=== PATIENT | male | born 1950 | race Caucasian/White ===

== ENCOUNTER 2016-12-03 09:57 | Observation (INO) | payer OTHER ==
[~2016-12-03] VITALS: Ht 185.4 cm; Wt 118.0 kg
[~2016-12-03 09:57] MED LIST: ASPI325T PO; BUPIVACAINE HCL PF 0.5% 30 ML VIAL ONE; CARV12.52; ENAL5TAB; GABA800T; GELFOAM SIZE 100 ONE; GENTAMICIN SULFATE 80 MG/2 ML VIAL ONE; LOVA10TA; MONT10TA4; MORP1TAB25; THROMBIN (TOPICAL) 5,000 UNIT VIAL ONE; ceFAZolin 2 GM PREMIX 50 ML ONE; methylPREDNISolone ACETATE 40 MG/ML VIAL ONE
[2016-12-03] MEDS ORDERED: INSULIN HUMAN REGULAR 1,000 UNITS/10 ML VIAL SQ PRN (10:45)
[2016-12-03] MEDS ORDERED: SODIUM CHLORID 0.9% 500 ML IV PRN (10:45)
[2016-12-03] MEDS ORDERED: CHLORHEXIDINE GLUCONATE 2 % 1 PACK (2 CLOTHS) TOPICAL PRN (10:45)
[2016-12-03] MEDS ORDERED: POVIDONE IODINE 5% (ANTISEPSIS KIT) 4 APPLICATIONS EACH NARE PRN (10:45)
[2016-12-03] MEDS ORDERED: LACTATED RINGER'S 1000 ML IV PRN (10:45)
[2016-12-03] MEDS ORDERED: METOPROLOL TARTRATE 25 MG TAB PO PRN (10:45)
[2016-12-03] MEDS ORDERED: SODIUM CHLOR 0.9% 1000 ML INJ 1,000 ML IV SCH (11:00)
[2016-12-03] MEDS ORDERED: LACTATED RINGER'S 1000 ML INJ 1,000 ML IV ONE (12:00)
[2016-12-03] MEDS ORDERED: ONDANSETRON HCL 4 MG/2 ML VIAL IV PUSH ONE (12:00)
[2016-12-03] MEDS ORDERED: DEXAMETHASONE SOD PHOS 4 MG/ML VIAL IV ONE (12:00)
[2016-12-03] MEDS ORDERED: LIDOCAINE HCL 1% PF 5 ML AMPULE OTHER ONE (12:00)
[2016-12-03] MEDS ORDERED: PROPOFOL 200 MG/20 ML AMP IV ONE (12:00)
[2016-12-03] MEDS ORDERED: ROCURONIUM INJ 50 MG/5 ML SYRINGE IV PUSH ONE (12:00)
[2016-12-03] MEDS ORDERED: PHENYLEPH/NS 1000 MCG/10 ML SYR IV ONE (12:00)
[2016-12-03] MEDS ORDERED: MIDAZOLAM HCL 2 MG/2 ML VIAL IV ONE (12:00)
[2016-12-03] MEDS ORDERED: ePHEDrine/NS 25 MG/5 ML SYR IV ONE (12:00)
[2016-12-03] MEDS: VANCOMYCIN HCL 1000 MG ON-CALL/NS 250 ML IV SCH ×4 (12:29→17:41)
[2016-12-03] MEDS ORDERED: FAMOTIDINE 20 MG/2 ML VIAL ONE (12:50)
[2016-12-03] MEDS ORDERED: HYDROmorphone HCL PF 2 MG/ML VIAL ONE ×2 (12:50→13:52)
[2016-12-03] MEDS ORDERED: ACETAMINOPHEN 1000 MG/100 ML 100 ML IV ONE (13:52)
[2016-12-03] MEDS ORDERED: ARTIFICIAL TEARS OPTH OINT 3.5 APPLIC/3.5 GM TUBO ONE (13:52)
[2016-12-03] MEDS ORDERED: VANCOMYCIN HCL 1000 MG VIAL ONE (15:05)
[2016-12-03] MEDS ORDERED: DO NOT ADM ANY ANTICOAGULANT DRUGS PRN (17:00)
[2016-12-03] MEDS ORDERED: HYDR-3583 PO (17:09)
[2016-12-03] MEDS ORDERED: MORPHINE SULFATE 4 MG/ML INJ IV PUSH PRN (17:15)
[2016-12-03] MEDS ORDERED: ACETAMINOPHEN/HYDROcodone 325 MG/10 MG TAB PO PRN (17:15)
[2016-12-03] MEDS ORDERED: ACETAMINOPHEN 325 MG TAB PO PRN (17:15)
--- NOTE | 2016-12-03 17:16 | RADRPT ---
EXAM DATE/TIME: 12/03/2016 14:55 [place] COMPARISON: No previous studies available for comparison. INDICATIONS : Level localiztion for lumbar fusion, L4-5, L5-S1. MEDICAL HISTORY : Unobtainable. SURGICAL HISTORY : Unobtainable. ENCOUNTER: Initial ACUITY: 1 day PAIN SCORE: Non-responsive. LOCATION: Lumbar. FINDINGS: Probe is directed at L5-S1. CONCLUSION: 12 L5-S1. Dilshad Sales MD FACR on December 03, 2016 at 17:15 Board Certified Radiologist. This report was verified electronically.
[2016-12-03] MEDS ORDERED: *MEPERIDINE 25 MG INJ VIAL PERIprocedural Use ONLY ONE (17:17)
[2016-12-03] MEDS ORDERED: SODIUM CHLORIDE 0.9% FLUSH 10 ML FLUSH IV FLUSH PRN (17:30)
[2016-12-03] MEDS: NS + KCL 20 MEQ INJ 1,000 ML IV SCH (17:35)
[2016-12-03] MEDS ORDERED: *morphine SULFATE 8 MG/ML PERIprocedure ONLY ONE (17:37)
[2016-12-03] MEDS: ceFAZolin 2 GM PREMIX 50 ML IV SCH (18:40)
[2016-12-03] MEDS: GABAPENTIN 400 MG CAP PO SCH (18:50)
[2016-12-03] MEDS: PRAVASTATIN SOD 10 MG TAB PO SCH (18:50)
[2016-12-03] MEDS: ENALAPRIL MALEATE 5 MG TAB PO SCH (18:50)
[2016-12-03] MEDS: CARVEDILOL 12.5 MG TAB PO SCH (20:50)
[2016-12-03] MEDS: MORPHINE SULFATE 30 MG CONTROLLED RELEASE TAB PO SCH (20:50)
[2016-12-03] MEDS: MONTELUKAST SODIUM 10 MG TAB PO SCH (20:50)
[2016-12-03] MEDS: DOCUSATE SODIUM 100 MG CAP PO SCH (20:50)
[2016-12-03] MEDS: SODIUM CHLORIDE 0.9% FLUSH 10 ML FLUSH IV FLUSH SCH (21:00)
[2016-12-03 21:10] VITALS: BP 147/74; PULSE 60; RESP 18; TEMP 97.7; O2SAT 96
[2016-12-03] MEDS: MORPHINE SULFATE 4 MG/ML INJ IV PUSH PRN (21:33)
[2016-12-04] VITALS (7 sets, daily range): BP systolic 108–144; BP diastolic 59–69; PULSE 68–79; RESP 16–18; TEMP 97.8–98.5; O2SAT 96–100
[2016-12-04] MEDS: MORPHINE SULFATE 4 MG/ML INJ IV PUSH PRN ×8 (00:34→20:16)
[2016-12-04] MEDS: ceFAZolin 2 GM PREMIX 50 ML IV SCH ×2 (02:35→09:09)
[2016-12-04] MEDS: NS + KCL 20 MEQ INJ 1,000 ML IV SCH ×3 (03:19→23:43)
[2016-12-04] MEDS: PRAVASTATIN SOD 10 MG TAB PO SCH (07:53)
[2016-12-04] MEDS: ENALAPRIL MALEATE 5 MG TAB PO SCH (07:53)
[2016-12-04] MEDS: MORPHINE SULFATE 30 MG CONTROLLED RELEASE TAB PO SCH ×2 (07:53→21:30)
[2016-12-04] MEDS: PANTOPRAZOLE SOD 40 MG DELAYED RELEASE TAB PO SCH (07:53)
[2016-12-04] MEDS: DOCUSATE SODIUM 100 MG CAP PO SCH ×2 (07:53→20:20)
[2016-12-04] MEDS: GABAPENTIN 400 MG CAP PO SCH ×3 (07:53→17:11)
[2016-12-04] MEDS: CARVEDILOL 12.5 MG TAB PO SCH ×2 (07:53→20:21)
[2016-12-04] MEDS: SODIUM CHLORIDE 0.9% FLUSH 10 ML FLUSH IV FLUSH SCH ×2 (07:54→20:26)
--- NOTE | 2016-12-04 10:43 | HHI.DCPOC ---
Discharge Care Plan Diagnosis: (1) S/P lumbar laminectomy Goals to Promote Your Health * To prevent worsening of your condition and complications * To maintain your health at the optimal level Directions to Meet Your Goals Take your medications as prescribed Follow your dietary instruction Follow activity as directed Keep your appointments as scheduled Take your immunizations and boosters as scheduled If your symptoms worsen call your PCP, if no PCP go to Urgent Care Center or Emergency Room Smoking is Dangerous to Your Health. Avoid second hand smoke Call the 24-hour hour crisis hotline for domestic abuse at [facility] Dec 04, 2016 10:43
--- NOTE | 2016-12-04 10:43 | HHI.DS ---
Discharge Summary Admission Date Dec 03, 2016 at 17:04 Discharge Date: Dec 05, 2016 Admitting Diagnosis s/p lumbar laminectomy, microdiscectomy (1) S/P lumbar laminectomy ICD Code: Z98.890 - Other specified postprocedural states Brief History Mr Walls is a 66 year-old male who presented with intractable back pain and gianna evidence of left L5 and S1 lower extremity radiculopathy. The patient has failed maximum nonsurgical management including multiple modalities of conservative treatment as well as pain management interventions by an interventional pain specialist. A surgical decompression was indicated as a last resort. Imaging Last Impressions Lumbar Spine X-Ray 12/03/16 0000 Signed Impressions: Service Date/Time: Saturday, December 03, 2016 14:55 - CONCLUSION: 12 L5- S1. Dilshad Sales MD [facility] Course Mr. Arreola underwent L4 5, L5-S1 decompressive laminectomy, mesial facetectomy, foraminotomy with microsurgical resection of the disc on Dec 03, 2016 for lumbar spinal stenosis. His surgery went well without complications and the patient was cleared for discharge home by Dr. Kvein the following day. Unfortunately he did not go home yesterday due to persistent left buttock pain. Mr. Arreola was seen again this am with Dr. Kevin, pt c/o difficulty laying on his left side and bearing weight on his left leg due to pain in the left buttocks. He also c/o numbness in the left lateral foot/toes. He denies focal weakness, urine retention, bowel incontinence. Pt reports he is not ready to go home. denies chest pain, difficulty breathing, shortness of breath. He was given Toradol injection and started on muscle relaxants and discharged to SNF. Wound care and activity restrictions were discussed to both the patient and his . Pt Condition on Discharge: Stable Discharge Disposition: Discharge to SNF Discharge Instructions DIET: Follow Instructions for: Heart Healthy Diet ACTIVITIES You can perform: Weight Bearing As Maritza ADDITIONAL Activity Instructio: Avoid strenuous activities, heavy lifting, overhead activities, repetitive bending, twisting, pushing, pulling or any activities which might result in stress over the spine. Avoid situation that will put at risk for falls. Use assistive device as needed for walking. Wear cervical collar at all times, may remove only with meals. Wear lumbar brace when out of bed. New Medications: Carisoprodol (Soma) 350 Mg Tab 350 MG PO TID PRN for PAIN, #90 TAB 0 Refills Hydrocodone-Acetaminophen (Hydrocodone-Acetaminophen) 10-325 mg Tab 1 TAB PO Q8HR PRN for PAIN SCALE 1 TO 10, #90 TAB Continued Medications: Aspirin (Aspirin) 325 Mg Tab 325 MG PO DAILY, #30 TAB 0 Refills Carvedilol (Carvedilol) 12.5 Mg Tab for 90 Days Enalapril (Enalapril) 5 Mg Tab for 90 Days Gabapentin (Gabapentin) 800 Mg Tab for 30 Days Lovastatin (Lovastatin) 10 Mg Tab for 90 Days Montelukast (Montelukast) 10 Mg Tab for 90 Days Morphine ER (Morphine ER) 30 Mg Tab for 30 Days [facility] Dec 04, 2016 10:43
--- NOTE | 2016-12-04 11:01 | PD.OP ---
Operative Report Date of Surgery: Dec 03, 2016 Preoperative Diagnosis: Lumbar spinal stenosis Postoperative Diagnosis: Lumbar spinal stenosis Procedure: L4 5, L5-S1 decompressive laminectomy, mesial facetectomy, foraminotomy with microsurgical resection of the disc Anesthesia: general Surgeon: Vick Kevin Ground Wood Supervisor(s): Lexis Navarrete Operation and Findings: INDICATIONS FOR THE SURGICAL PROCEDURE Mr alfonso is a 66 year-old male who presented with intractable back pain and gianna evidence of left L5 and S1 lower extremity radiculopathy. The patient has failed maximum nonsurgical management including multiple modalities of conservative treatment as well as pain management interventions by an interventional pain specialist. A surgical decompression was indicated as a last resort. The [id number] details of the procedure, indications, alternatives, risks and potential complications were fully discussed with the patient. The patient fully understood. All the questions were answered. No guarantees were given. The patient voiced requesting the procedure and provided informed consents. The patient was offered the alternative of delaying the procedure and continuing with nonsurgical management. DETAILS OF THE SURGICAL PROCEDURE After the induction of general anesthesia, endotracheal intubation was performed. A Bah catheter, bilateral MICHELLE hose and sequential compression devices were placed and kept throughout the procedure. The patient was positioned prone on a Enrique table over a Sony frame. All pressure points were carefully padded with eggcrate mattress. The eyes were tapped shut after ointment was applied by the anesthesiologist to prevent corneal abrasion. A Mora hugger was placed over the exposed lower body to maintain control of the core body temperature. The lower lumbar region was prepped and draped in the usual sterile fashion. A spinal needle was placed on the paraspinal muscle and a cross-table lateral x-ray performed with a C-arm. The skin incision was made over the spinous process of L4 and S1 along the midline. Small subcutaneous bleeders were controlled with a bipolar. The subcutaneous tissue and thoracolumbar fascia was opened with the Bovie and the spinous process of L4, L5 and S1 were exposed. Then, using a Philip elevator and a Bovie a subperiosteal dissection was performed over the spinous process lamina and facet at L4-L5, and L5-S1 on the left side. A microdiscectomy self- retaining retractor was placed and an instrument was placed underneath the lamina of L5, and another cross-table lateral x-ray performed for radiological confirmation of the level. At this point in the procedure the operating microscope was draped in the usual sterile fashion and brought to the field. The rest of the surgical procedure was performed using microsurgical dissection technique with exception of the closure. Once the level was confirmed, a TPS drill brought to the field and a left hemilaminectomy was performed at L4-L5, and L5-S1 in standard fashion using the AM-8 drill bit, exposing the ligamentum flavum. The superior free border of the ligamentum flavum was from the dura with a ligament dissector and the ligamentum flavum was carefully removed with a 3 mm thin footplate Kerrison. The ligament Flavum and facets were significantly hypertrophic resulting on mass effect on the dural sac. Then, the medial aspect of the facet was drilled and undermined and the exiting L5 nerve root was identified and followed towards the foramen. A foraminotomy was performed with a 3 mm Kerrison. Then, the TPS drill was used to undermine the base of the spinous process, in order to carry out the decompression across the midline to the contralateral side. The ligamentum flavum across the midline was dissected from the dura with a ligament dissector and carefully removed with a 3 mm thin footplate Kerrison. An appropriate decompression of the dural sac and nerve root was achieved. Epidural veins located laterally to the dural sac were carefully coagulated with a bipolar and incised with microscissors. Gentle medial retraction of the dural sac allowed inspection of the disc space. The patient had a broad-based disc protusion which combined with the hypertrophic facets and ligamentun flavum was producing significant stenosis with mass effect on the dural sac and nerve root. Microdiscectomy was then deemed necessary. The annulus fibrosus was thoroughly coagulated with the bipolar and incised with a #10 blade. Then, a microdiscectomy was carried out in the standard fashion using straight and up-biting pituitary forceps. A reverse angle curet was used to push the extruded disc fragments into the disc space so they could be removed with pituitary forceps. Special attention was placed on the middle nerve root and axilla of the nerve root where disc fragments were found, which were carefully dissected and pushed into the disc space and removed with the Kerrison. A good decompression was achieved. The disc space was then irrigated with antibiotic solution. The incision was then thoroughly irrigated with antibiotic solution and hemostasis secured with the bipolar. A Valsalva maneuver failed to show any cerebrospinal fluid leak or bleeding. The incision was irrigated and closed in layers. 0 Vicryl with interrupted sutures was used to close the thoracolumbar fascia and superficial fascia. The subcutaneous tissue was closed with 3-0 Vicryl. The skin was closed with 4-0 running subcuticular Vicryl. Dermabond was applied to the skin. At the end of the procedure, the sponge, needle and instrument counts were all correct. Estimated blood loss was less than 150-200 cc. No blood transfusion was given. No intraoperative complications occurred. The patient received prophylactic antibiotics. The patient was then extubated and transferred to the recovery room in stable condition. Vick Kevin MD Dec 04, 2016 11:01
[2016-12-04] MEDS: MONTELUKAST SODIUM 10 MG TAB PO SCH (20:21)
[2016-12-04] MEDS ORDERED: TEMAZEPAM 15 MG CAP PO ONE (23:30)
[2016-12-04] MEDS: ACETAMINOPHEN/HYDROcodone 325 MG/10 MG TAB PO PRN (23:42)
[2016-12-05] VITALS: BP 140/60; PULSE 75; RESP 17; TEMP 98.1; O2SAT 99
[2016-12-05 02:45] VITALS: O2SAT 98
[2016-12-05] MEDS: ACETAMINOPHEN/HYDROcodone 325 MG/10 MG TAB PO PRN ×3 (03:05→13:40)
[2016-12-05 04:40] VITALS: BP 120/56; PULSE 78; RESP 17; TEMP 98.5; O2SAT 94
[2016-12-05 08:00] VITALS: BP 124/62; PULSE 75; RESP 18; TEMP 97.8; O2SAT 96
[2016-12-05] MEDS: PRAVASTATIN SOD 10 MG TAB PO SCH (08:37)
[2016-12-05] MEDS: MORPHINE SULFATE 30 MG CONTROLLED RELEASE TAB PO SCH (08:37)
[2016-12-05] MEDS: GABAPENTIN 400 MG CAP PO SCH ×3 (08:37→17:28)
[2016-12-05] MEDS: CARVEDILOL 12.5 MG TAB PO SCH (08:38)
[2016-12-05] MEDS: ENALAPRIL MALEATE 5 MG TAB PO SCH (08:38)
[2016-12-05] MEDS: PANTOPRAZOLE SOD 40 MG DELAYED RELEASE TAB PO SCH (08:38)
[2016-12-05] MEDS: DOCUSATE SODIUM 100 MG CAP PO SCH (08:38)
[2016-12-05] MEDS ORDERED: KETOROLAC TROMETHAMINE 60 MG/2 ML (IM) VIAL IM ONE ×2 (09:15→10:00)
[2016-12-05] MEDS ORDERED: KETOROLAC TROMETHAMINE 30 MG/ML (IVP) VIAL IV PUSH ONE (09:15)
[2016-12-05] MEDS ORDERED: SOMA350T PO (09:16)
[2016-12-05] MEDS ORDERED: CARISOPRODOL 350 MG TAB PO PRN (09:30)
--- NOTE | 2016-12-05 09:46 | HHI.NSPN ---
([facility]) Note Status Status: Progress Note ([facility]) Interval History Interval History Mr. Arreola was seen yesterday during morning rounds and discharged home by Dr. Kevin. However, he did not go home yesterday due to persistent left buttock pain. Mr. Arreola was seen again this am with Dr. Kevin, pt c/o difficulty laying on his left side and bearing weight on his left leg due to pain in the left buttocks. He also c/o numbness in the left lateral foot/toes. He denies focal weakness, urine retention, bowel incontinence. He c/o pain right peripheral IV site. Pt reports he is not ready to go home. denies chest pain, difficulty breathing, shortness of breath. ([facility]) Labs, Micro, & Vital Signs Results Date Time Temp Pulse Resp B/P (MAP) Pulse Ox O2 Delivery O2 Flow Rate FiO2 12/05/16 08:00 97.8 75 18 124/62 (82) 96 12/05/16 04:40 98.5 78 17 120/56 (77) 94 12/05/16 02:45 98 12/05/16 00:00 98.1 75 17 140/60 (86) 99 12/04/16 20:40 98.4 74 17 144/63 (90) 98 12/04/16 20:23 21 12/04/16 16:00 97.8 70 16 129/62 (84) 100 12/04/16 12:00 97.9 74 16 108/61 (77) 98 Constitutional Vital Signs Date Time Temp Pulse Resp B/P (MAP) Pulse Ox O2 Delivery O2 Flow Rate FiO2 12/05/16 08:00 97.8 75 18 124/62 (82) 96 12/05/16 04:40 98.5 78 17 120/56 (77) 94 12/05/16 02:45 98 12/05/16 00:00 98.1 75 17 140/60 (86) 99 12/04/16 20:40 98.4 74 17 144/63 (90) 98 12/04/16 20:23 21 12/04/16 16:00 97.8 70 16 129/62 (84) 100 12/04/16 12:00 97.9 74 16 108/61 (77) 98 ([facility]) Review of Systems Constitutional: DENIES: Fever, Chills Respiratory: DENIES: Shortness of breath Cardiovascular: DENIES: Chest pain Musculoskeletal: COMPLAINS OF: Muscle aches, Back pain ([facility]) Physical Exam Mr. Arreola is alert, awake and oriented to time, place and person. Speech is fluent. Wound is clean and dry, glued dressing intact. No redness, warmth, drainage, or signs of infection. Cranial nerve examination: pupils to be equal, round and reactive to light. Extra-ocular movements are intact. Facial motor are normal and symmetrical. Neck is soft and supple Muscle strength 5/5 in both iliopsoas, quadriceps, hamstrings, plantarflexion, dorsiflexion, reports mild weakness with wiggling his left toes. Sensory examination is intact to light touch in lower extremities. bilateral plantar flexion response. Extremities: no swelling or erythema tenderness to palpation over the left buttocks, no bruising, swelling, discoloration noted over the area Right peripheral IV site appears clean, no swelling, streaking around the site. ([facility]) Medications Current Medications Current Medications Medications (Trade) Dose Ordered Sig/Gerardo Route PRN Reason Start Time Stop Time Status Last Admin Dose Admin Vancomycin HCl 1000 mg/Sodium Chloride 250 ml @ 250 mls/hr [employer] IV 12/03/16 10:45 12/06/16 10:44 12/03/16 12:29 Potassium Chloride/Sodium Chloride 1,000 ml @ 100 mls/hr Q10H IV 12/03/16 17:00 12/04/16 23:43 Sodium Chloride (NS Flush) 2 ml UNSCH PRN IV FLUSH FLUSH AFTER USING IV ACCESS 12/03/16 17:30 Sodium Chloride (NS Flush) 2 ml BID IV FLUSH 12/03/16 21:00 12/04/16 20:26 Docusate Sodium (Colace) 100 mg BID PO 12/03/16 21:00 12/05/16 08:38 Pantoprazole Sodium (Protonix) 40 mg DAILY PO 12/04/16 09:00 12/05/16 08:38 Acetaminophen/ Hydrocodone Bitart ([place] 10-325 Mg) 1 tab Q4H PRN PO PAIN SCALE 1 TO 5 12/03/16 17:15 Acetaminophen/ Hydrocodone Bitart ([place] 10-325 Mg) 2 tab Q4H PRN PO PAIN SCALE 6 TO 10 12/03/16 17:15 12/05/16 06:42 Morphine Sulfate (Morphine Inj) 2 mg Q2H PRN IV PUSH PAIN SCALE 1 TO 6 12/03/16 17:15 Morphine Sulfate (Morphine Inj) 4 mg Q2H PRN IV PUSH PAIN SCALE 7 TO 10 12/03/16 17:15 12/04/16 20:16 Acetaminophen (Tylenol) 650 mg Q4H PRN PO TEMPERATURE > 101.5 F 12/03/16 17:15 Enalapril Maleate (Vasotec) 5 mg DAILY PO 12/03/16 18:30 12/05/16 08:38 Pravastatin Sodium (Pravachol) 10 mg DAILY PO 12/03/16 18:30 12/05/16 08:37 Carvedilol (Coreg) 12.5 mg BID PO 12/03/16 21:00 12/05/16 08:38 Gabapentin (Neurontin) 800 mg TID PO 12/03/16 19:00 12/05/16 08:37 Montelukast Sodium (Singulair) 10 mg HS PO 12/03/16 21:00 12/04/16 20:21 Morphine Sulfate (Oramorph Sr) 30 mg BID PO 12/03/16 21:00 12/05/16 08:37 Carisoprodol (Soma) 350 mg Q8H PRN PO muscle spasms 12/05/16 09:30 UNV Ketorolac Tromethamine (Toradol Inj) 60 mg ONCE ONCE IM 12/05/16 09:30 12/05/16 09:31 UNV ([facility]) Medical Decision Making MDM Remarks 66 year old male s/p L4-S1 laminectomy, microdiscectomy 12/03/16 ([facility]) Plan Plan Remarks discontinue right peripheral IV line, cont oral pain medications prn for pain control Toradol 60 mg IM x 1 start on muscle relaxants, cont his Neurontin cont therapy, encourage mobilization had discussed with patient and over the phone yesterday regarding his activity restrictions and strict wound care shower nightly and prior to discharge Dr. Herberth jamil for discharge to SNF ([facility]) Attending Statement The exam, history, and the medical decision-making described in the above note were completed with the assistance of the mid-level provider. I reviewed and agree with the findings presented. I attest that I had a [id number] encounter with the patient on the same day, and personally performed and documented my assessment and findings in the medical record. (Vick Kevin MD) [facility] Dec 05, 2016 09:46 Vick Kevin MD Dec 06, 2016 09:43
[2016-12-05 10:45] VITALS: O2SAT 96
[2016-12-05] MEDS ORDERED: CHLORHEXIDINE GLUCONATE 4% SOLN 120 ML BTL TOP SCH (14:00)
[2016-12-05 16:00] VITALS: BP 122/56; PULSE 65; RESP 18; TEMP 98; O2SAT 98
[2016-12-24] MEDS ORDERED: MSIR15 (11:08)
[2016-12-24] MEDS ORDERED: GABA300C5 PO (12:02)
[2016-12-24] MEDS ORDERED: MOBI7.5T PO (12:06)
[2016-12-24] MEDS ORDERED: PROT40TA PO (12:06)
== END 2016-12-05 19:06 ==
LOC: HSDC 09:57 → HSDI 17:04 → N05B 18:33
PROVIDERS: ADMIT Neurological Surgery; ATTEND Neurological Surgery
DX: M48.06 Spinal stenosis, lumbar region (principal); M54.10 Radiculopathy, site unspecified; I48.91 Unspecified atrial fibrillation; I25.10 Atherosclerotic heart disease of native coronary artery without angina pectoris
CPT/HCPCS: 00630; 63030; 63035; 72020; 76000; 94150; 96365; 96366; 96368; 96375; 97110; 97116; 97162; G0378; G8987; G8988; J0131; J0690; J1030; J1100; J1170; J1580; J1885; J2175; J2250; J2270; J2370; J2405; J3010; J3370; J3480; J7050; J7120; L0627